=== PATIENT | female | born 1945 | race African-American/Black ===

== ENCOUNTER 2022-12-21 15:58 | Emergency (ER) | payer OTHER, MEDICAID ==
[~2022-12-21] VITALS: Ht 160 cm; Wt 77.0 kg
[2022-12-21] MEDS ORDERED: ACETAMINOPHEN 325MG TABLET PO STA (16:52)
[2022-12-21] MEDS ORDERED: NAPR-681 PO (18:09)
[2022-12-21] MEDS ORDERED: BO1 TP (18:14)
[2022-12-21] MEDS ORDERED: BACITRACIN ZINC OINT UDPKT TOP ONE (18:15)
[2022-12-21 19:11] VITALS: BP 142/77
== END 2022-12-21 19:13 | disposition home or self-care (01) ==
LOC: ER 15:58
DX: S42.435A Nondisplaced fracture (avulsion) of lateral epicondyle of left humerus, initial encounter for closed fracture (principal); S40.022A Contusion of left upper arm, initial encounter; S50.312A Abrasion of left elbow, initial encounter; I10 Essential (primary) hypertension; M19.90 Unspecified osteoarthritis, unspecified site; Z86.73 Personal history of transient ischemic attack (TIA), and cerebral infarction without residual deficits; V49.9XXA Car occupant (driver) (passenger) injured in unspecified traffic accident, initial encounter; Y93.89 Activity, other specified; Y92.89 Other specified places as the place of occurrence of the external cause; Y99.8 Other external cause status
CPT/HCPCS: 73060; 73080; 73090; 73130; 99284